=== PATIENT | male | born 1965 | race Caucasian/White ===

== ENCOUNTER 2018-07-15 01:50 | Emergency (ER) | payer SELFPAY, OTHER | END 2018-07-15 03:15 | disposition home or self-care (01) | LOC: FTE 01:50 | DX: R04.0 Epistaxis (principal) | CPT/HCPCS: 99282 ==

== ENCOUNTER 2019-03-05 20:46 | Emergency (ER) | payer SELFPAY | END 2019-03-05 21:23 | disposition left against medical advice (07) | LOC: E/R 20:46 | DX: Z53.21 Procedure and treatment not carried out due to patient leaving prior to being seen by health care provider (principal) ==

== ENCOUNTER 2019-03-06 07:50 | Emergency (ER) | payer OTHER ==
[2019-03-06 08:27] LABS: ADD MAN DIFF? NO
[2019-03-06 08:29] LABS: ABNORMAL IP MESSAGE 1; BASOPHIL # 0.1 10^3/ul (0.0-0.1); BASOPHILS % 0.5 % (0.0-2.0); EOSINOPHILS # 0.1 10^3/ul (0.0-0.5); EOSINOPHILS % 1.2 % (0.0-7.0); HEMATOCRIT 32.9 % (42.0-52.0); HEMOGLOBIN 10.5 g/dl (14.0-18.0); LYMPHOCYTES # 6.3 10^3/ul (0.8-2.9); MEAN CORPUSCULAR HEMOGLOBIN 29.2 pg (29.0-33.0); MEAN CORPUSCULAR HGB CONC 31.9 g/dl (32.0-37.0); MEAN CORPUSCULAR VOLUME 91.4 fl (82.0-101.0); MEAN PLATELET VOLUME 8.5 fl (7.4-10.4); MONOCYTE # 0.5 10^3/ul (0.3-0.9); MONOCYTES % 4.9 % (0.0-11.0); NEUTROPHIL # 2.5 10^3/ul (1.6-7.5); NEUTROPHILS % 26.1 % (39.0-77.0); PLATELET COUNT 300 10^3/UL (140-415); POSITIVE DIFF @See below; RED CELL DISTRIBUTION WIDTH 14.4 % (11.5-14.5)
[2019-03-06 08:29] LABS: WHITE BLOOD COUNT 9.4 10^3/ul (4.8-10.8)
[2019-03-06 08:46] LABS: LYMPHOCYTES % 67.1 % (15.0-51.0)
[2019-03-06 08:48] LABS: INR 1.03; PROTIME 13.6 Sec (11.9-14.9); PT RATIO 1.1
[2019-03-06 09:05] LABS: ALANINE AMINOTRANSFERASE 27 IU/L (13-69); ALBUMIN/GLOBULIN RATIO 1.02; ALKALINE PHOSPHATASE 137 IU/L (42-121); ANION GAP 8 (5-13); ASPARTATE AMINO TRANSFERASE 44 IU/L (15-46); BILIRUBIN,INDIRECT 0.4 mg/dl (0-1.1); BILIRUBIN,TOTAL 0.4 mg/dl (0.2-1.3); BLOOD UREA NITROGEN 30 mg/dl (7-20); CALCIUM 9.1 mg/dl (8.4-10.2); CARBON DIOXIDE 31 mmol/L (21-31); CHLORIDE 103 mmol/L (97-110); CREATININE 1.02 mg/dl (0.61-1.24); Estimated GFR > 60 mL/min (>60); GLUCOSE 103 mg/dl (70-220); POTASSIUM 4.7 mmol/L (3.5-5.1); SODIUM 142 mmol/L (135-144); TOTAL PROTEIN 7.9 g/dl (6.1-8.1)
[2019-03-06] MEDS: LIDOCAINE 1% (MPF) 5 ML VIAL (09:30)
[2019-03-06 10:08] LABS: ANISOCYTOSIS 1+ (0-0); BAND NEUTROPHILS #M 0.1 10^3/ul (0.0-0.6); BAND NEUTROPHILS % (M) 2 % (0-4); LYMPHOCYTES #M 4.1 10^3/ul (0.8-2.9); LYMPHOCYTES % (M) 44 % (15-51); MONOCYTE #M 0.4 10^3/ul (0.3-0.9); MONOCYTES % (M) 5 % (0-11); PLATELET ESTIMATE NORMAL; RBC MORPHOLOGY COMMENT @See below; REACTIVE LYMPHOCYTES% (M) 1 % (0-0); SEG NEUT #M 3.5 10^3/ul (1.6-7.5); SEGMENTED NEUTROPHILS (M) % 37 % (39-77); SMUDGE%M 23 % (0-0); WBC MORPHOLOGY COMMENT @See below
== END 2019-03-06 10:24 | disposition home or self-care (01) ==
LOC: E/R 07:50
DX: R18.8 Other ascites (principal); C85.90 Non-Hodgkin lymphoma, unspecified, unspecified site; Z87.891 Personal history of nicotine dependence
CPT/HCPCS: 80053; 85025; 85610; 85730; 99285-25

== ENCOUNTER 2019-03-17 17:36 | Emergency (ER) | payer SELFPAY, OTHER | END 2019-03-17 18:23 | disposition left against medical advice (07) | LOC: E/R 17:36 | DX: Z53.21 Procedure and treatment not carried out due to patient leaving prior to being seen by health care provider (principal) ==

== ENCOUNTER 2019-03-18 11:07 | Emergency (ER) | payer OTHER ==
[2019-03-18] MEDS: LIDOCAINE 1% (MPF) 5 ML VIAL (15:35)
== END 2019-03-18 15:45 | disposition home or self-care (01) ==
LOC: E/R 11:07 → FTE 15:45
DX: R10.9 Unspecified abdominal pain (principal)
CPT/HCPCS: 99285-25; Z7502

== ENCOUNTER 2019-03-24 14:19 | Emergency (ER) | payer OTHER ==
[2019-03-24 15:26] LABS: WHITE BLOOD COUNT 6.6 10^3/ul (4.8-10.8)
[2019-03-24 15:26] LABS: HEMATOCRIT 34.8 % (42.0-52.0); HEMOGLOBIN 10.7 g/dl (14.0-18.0); MEAN CORPUSCULAR HEMOGLOBIN 28.5 pg (29.0-33.0); MEAN CORPUSCULAR HGB CONC 30.7 g/dl (32.0-37.0); MEAN CORPUSCULAR VOLUME 92.8 fl (82.0-101.0); MEAN PLATELET VOLUME 8.2 fl (7.4-10.4); PLATELET COUNT 254 10^3/UL (140-415); RED BLOOD COUNT 3.75 10^6/ul (4.70-6.10); RED CELL DISTRIBUTION WIDTH 14.6 % (11.5-14.5)
[2019-03-24 15:40] LABS: ADD MAN DIFF? YES
[2019-03-24 15:44] LABS: ALANINE AMINOTRANSFERASE 20 IU/L (13-69); ALBUMIN 3.4 g/dl (3.3-4.9); ALBUMIN/GLOBULIN RATIO 1.03; ALKALINE PHOSPHATASE 117 IU/L (42-121); ANION GAP 4 (5-13); ASPARTATE AMINO TRANSFERASE 36 IU/L (15-46); BILIRUBIN,INDIRECT 0.4 mg/dl (0-1.1); BILIRUBIN,TOTAL 0.4 mg/dl (0.2-1.3); BLOOD UREA NITROGEN 18 mg/dl (7-20); CALCIUM 8.3 mg/dl (8.4-10.2); CARBON DIOXIDE 29 mmol/L (21-31); CHLORIDE 108 mmol/L (97-110); CREATININE 0.92 mg/dl (0.61-1.24); Estimated GFR > 60 mL/min (>60); GLUCOSE 81 mg/dl (70-220); POTASSIUM 4.2 mmol/L (3.5-5.1); SODIUM 141 mmol/L (135-144); TOTAL PROTEIN 6.7 g/dl (6.1-8.1)
[2019-03-24 16:26] LABS: ANISOCYTOSIS 1+ (0-0); BAND NEUTROPHILS #M 0.1 10^3/ul (0.0-0.6); BAND NEUTROPHILS % (M) 3 % (0-4); EOSINOPHILS % (M) 3 % (0-7); LYMPHOCYTES #M 3.3 10^3/ul (0.8-2.9); LYMPHOCYTES % (M) 50 % (15-51); MONOCYTE #M 0.2 10^3/ul (0.3-0.9); MONOCYTES % (M) 4 % (0-11); PLATELET ESTIMATE NORMAL; POLYCHROMASIA 3+ (0-0); PROMYELOCYTES % (M) 1 % (0-0); REACTIVE LYMPHOCYTES #M 0.1 10^3/ul (0.0-0.0); REACTIVE LYMPHOCYTES% (M) 3 % (0-0); SEG NEUT #M 2.5 10^3/ul (1.6-7.5); SEGMENTED NEUTROPHILS (M) % 38 % (39-77)
[2019-03-24] MEDS: LIDOCAINE 1% (MPF) 5 ML VIAL (17:41)
[2019-03-24 17:59] LABS: INR 1.03; PARTIAL THROMBOPLASTIN TIME 30.9 Sec (23.0-35.0); PROTIME 13.6 Sec (11.9-14.9); PT RATIO 1.1
== END 2019-03-24 19:08 | disposition home or self-care (01) ==
LOC: E/R 14:19
DX: E87.70 Fluid overload, unspecified (principal); Z85.72 Personal history of non-Hodgkin lymphomas
CPT/HCPCS: 49083; 71045; 80053; 85025; 85610; 85730; 99285-25

== ENCOUNTER 2019-04-05 07:33 | Emergency (ER) | payer OTHER ==
[2019-04-05] MEDS: LIDOCAINE 1% (MPF) 5 ML VIAL (09:30)
== END 2019-04-05 09:48 | disposition home or self-care (01) ==
LOC: E/R 07:33
DX: C82.90 Follicular lymphoma, unspecified, unspecified site (principal); R18.0 Malignant ascites; Z48.817 Encounter for surgical aftercare following surgery on the skin and subcutaneous tissue
CPT/HCPCS: 49083; 99285-25

== ENCOUNTER 2019-04-10 07:36 | Emergency (ER) | payer OTHER ==
[2019-04-10] MEDS: LIDOCAINE 1% (MPF) 5 ML VIAL (10:01)
== END 2019-04-10 10:04 | disposition home or self-care (01) ==
LOC: E/R 07:36
DX: R18.8 Other ascites (principal); Z85.71 Personal history of Hodgkin lymphoma
CPT/HCPCS: 49083; 99285-25

== ENCOUNTER 2019-04-10 13:15 | Emergency (ER) | payer OTHER | END 2019-04-10 13:32 | disposition home or self-care (01) | LOC: E/R 13:15 | DX: T81.89XA Other complications of procedures, not elsewhere classified, initial encounter (principal); Y73.2 Prosthetic and other implants, materials and accessory gastroenterology and urology devices associated with adverse incidents; Y84.4 Aspiration of fluid as the cause of abnormal reaction of the patient, or of later complication, without mention of misadventure at the time of the procedure | CPT/HCPCS: 99282; Z7502 ==

== ENCOUNTER 2019-04-18 07:12 | Emergency (ER) | payer OTHER ==
[2019-04-18 07:53] LABS: ABNORMAL IP MESSAGE 1; HEMATOCRIT 33.1 % (42.0-52.0); HEMOGLOBIN 10.1 g/dl (14.0-18.0); MEAN CORPUSCULAR HEMOGLOBIN 27.4 pg (29.0-33.0); MEAN CORPUSCULAR HGB CONC 30.5 g/dl (32.0-37.0); MEAN CORPUSCULAR VOLUME 89.7 fl (82.0-101.0); MEAN PLATELET VOLUME 8.2 fl (7.4-10.4); PLATELET COUNT 337 10^3/UL (140-415); POSITIVE DIFF @See below; RED BLOOD COUNT 3.69 10^6/ul (4.70-6.10); RED CELL DISTRIBUTION WIDTH 14.2 % (11.5-14.5)
[2019-04-18 07:53] LABS: WHITE BLOOD COUNT 2.1 10^3/ul (4.8-10.8)
[2019-04-18 07:55] LABS: ADD MAN DIFF? YES
[2019-04-18 08:16] LABS: INR 1.02; PROTIME 13.5 Sec (11.9-14.9); PT RATIO 1.1
[2019-04-18 08:17] LABS: PARTIAL THROMBOPLASTIN TIME 34.3 Sec (23.0-35.0)
[2019-04-18 08:21] LABS: ALANINE AMINOTRANSFERASE 29 IU/L (13-69); ALBUMIN 2.7 g/dl (3.3-4.9); ALBUMIN/GLOBULIN RATIO 0.96; ALKALINE PHOSPHATASE 88 IU/L (42-121); ANION GAP 3 (5-13); ASPARTATE AMINO TRANSFERASE 23 IU/L (15-46); BILIRUBIN,INDIRECT 0.3 mg/dl (0-1.1); BILIRUBIN,TOTAL 0.3 mg/dl (0.2-1.3); BLOOD UREA NITROGEN 18 mg/dl (7-20); CALCIUM 7.8 mg/dl (8.4-10.2); CARBON DIOXIDE 30 mmol/L (21-31); CHLORIDE 105 mmol/L (97-110); CREATININE 0.75 mg/dl (0.61-1.24); Estimated GFR > 60 mL/min (>60); GLUCOSE 88 mg/dl (70-220); SODIUM 138 mmol/L (135-144); TOTAL PROTEIN 5.5 g/dl (6.1-8.1)
[2019-04-18 09:22] LABS: EOSINOPHILS % (M) 11 % (0-7); GIANT THROMBO% (M) 1 % (0-0); LYMPHOCYTES #M 1.2 10^3/ul (0.8-2.9); LYMPHOCYTES % (M) 61 % (15-51); MONOCYTE #M 0.1 10^3/ul (0.3-0.9); MONOCYTES % (M) 9 % (0-11); PLATELET ESTIMATE NORMAL; REACTIVE LYMPHOCYTES% (M) 2 % (0-0); SEGMENTED NEUTROPHILS (M) % 17 % (39-77); SMUDGE%M 7 % (0-0)
[2019-04-18] MEDS: LIDOCAINE 1% (MPF) 5 ML VIAL (09:44)
[2019-04-18 10:59] LABS: FLD MN% 95.7 %; FLD PMN% 4.3 %; FLD RBC 2000 /uL; FLD WBC 2058 /cmm
[2019-04-18 11:17] LABS: FLUID GLUCOSE 87 mg/dl
[2019-04-18 11:18] LABS: FLUID LD 257 U/L; FLUID TOTAL PROTEIN 3.4 g/dl; FLUID TYPE ASCITES FLUID; FLUID TYPE ASCITIES FLUID
[2019-04-18 11:25] LABS: FLD CLARITY TURBID; FLD COLOR MILKY
[2019-04-18 11:25] LABS: FLD TYPE PERITONEAL
[2019-04-18 11:26] LABS: PATH REVIEW? YES
== END 2019-04-18 11:20 | disposition home or self-care (01) ==
LOC: E/R 07:12
DX: R18.8 Other ascites (principal); R06.02 Shortness of breath; Z98.890 Other specified postprocedural states; Z85.72 Personal history of non-Hodgkin lymphomas; Z87.891 Personal history of nicotine dependence
CPT/HCPCS: 49083; 80053; 82945; 83615; 84157; 85025; 85610; 85730; 87070; 87102; 87116; 89051; 99285-25

== ENCOUNTER 2019-05-02 10:59 | Emergency (ER) | payer OTHER ==
[2019-05-02] MEDS: LIDOCAINE 1% (MPF) 5 ML VIAL (12:45)
[2019-05-02] MEDS: LIDOCAINE 1% (MDV) 20 ML INJ (13:14)
== END 2019-05-02 13:18 | disposition home or self-care (01) ==
LOC: E/R 10:59
DX: R18.8 Other ascites (principal); Z85.72 Personal history of non-Hodgkin lymphomas
CPT/HCPCS: 49083; 99285-25